=== PATIENT | female | born 1965 | race African-American/Black ===

== ENCOUNTER 2017-12-08 10:04 | Emergency (ER) | payer MEDICARE, OTHER ==
[~2017-12-08] VITALS: Ht 154.9 cm; Wt 93.5 kg
[~2017-12-08 10:04] MED LIST: AMLODIPINE; HYDR-519; LEVOTHYROXINE
[2017-12-08] MEDS ORDERED: KETOROLAC 60MG/2ML VIAL IM ONE (17:45)
[2017-12-08] MEDS ORDERED: HYDROCODONE/ACETAMINOPHEN 5/325MG TABLET PO ONE (20:30)
[2017-12-08] MEDS ORDERED: MORPHINE SULFATE 10 MG/ML CPJ IM ONE (21:30)
[2017-12-08 22:15] VITALS: BP 122/87
== END 2017-12-08 22:18 | disposition home or self-care (01) ==
LOC: ER 10:45
DX: M51.16 Intervertebral disc disorders with radiculopathy, lumbar region (principal); C19 Malignant neoplasm of rectosigmoid junction; R21 Rash and other nonspecific skin eruption; M48.061 Spinal stenosis, lumbar region without neurogenic claudication; I10 Essential (primary) hypertension; Z90.710 Acquired absence of both cervix and uterus; Z93.3 Colostomy status; Z98.890 Other specified postprocedural states
CPT/HCPCS: 72148; 96372; 99284; J1885; J2270